=== PATIENT | female | born 1970 | race Caucasian/White ===

== ENCOUNTER 2021-02-09 16:24 | Emergency (ER) | payer OTHER, SELFPAY ==
[2021-02-09 16:25] VITALS: BP 125/72; PULSE 80; RESP 16; TEMP 35.6; O2SAT 97; BMI 41.0
--- NOTE | 2021-02-09 16:42 | US_ITS ---
STUDY: VENOUS DOPPLER ULTRASOUND - RIGHT LOWER EXTREMITY REASON FOR EXAM: Female, 50 years old. SWELLING RT LOWER LEG TECHNIQUE: Ultrasound evaluation of the deep vein system to include alamo-scale imaging and compression was performed. Alamo-scale imaging and Doppler sonographic evaluation, including duplex spectral analysis and qualitative color flow sonography, was performed. COMPARISON: 05/26/2017 FINDINGS: Common Femoral Vein: Normal compression, spontaneity and augmentation. Normal color Doppler. Common Femoral Vein/Greater Saphenous Junction: Normal compression, spontaneity and augmentation. Normal color Doppler. Deep Femoral Vein: Normal compression, spontaneity and augmentation. Normal color Doppler. Femoral Proximal: Normal compression, spontaneity and augmentation. Normal color Doppler. Femoral Middle: Normal compression, spontaneity and augmentation. Normal color Doppler. Femoral Distal: Normal compression, spontaneity and augmentation. Normal color Doppler. Popliteal Vein: Normal compression, spontaneity and augmentation. Normal color Doppler. Posterior Tibial Vein: Normal compression, spontaneity and augmentation. Normal color Doppler. Peroneal Vein: Normal compression, spontaneity and augmentation. Normal color Doppler. US/Venous Duplex Imag/Limited/Uni IMPRESSION: Normal venous Doppler ultrasound of the lower extremity. Electronically Signed: Larry Stephenson MD at 17:40 EDT Tel , Service support ,
--- NOTE | 2021-02-09 18:24 | EX.ED.DYSGE1 ---
HPI History of Present Illness Chief Complaint: Lower Extremity Injury Narrative Narrative: Patient presenting with intermittent right leg pain and swelling. She states it starts in the inguinal region and it hurts in her calf as well. No history of DVT/PE. She seen by her primary care provider today who sent her to the emergency room for DVT study. Patient denies any chest pain or palpitations. Patient feels otherwise well. She denies any trauma. [facility] Medical History Anxiety and depression Atrial flutter Cervical radiculopathy Degenerative disc disease Home Medications Zoloft 50 mg PO DAILY 07/12/14 [History Last Taken 07/11/14] aspirin 81 mg PO DAILY 09/17/16 [History Last Taken Unknown] atenolol 50 mg PO DAILY 09/17/16 [History Last Taken Unknown] gabapentin 300 mg PO QHS 02/09/21 [History Last Taken Unknown] Allergy/AdvReac Type Severity Reaction Status Date / Time codeine Allergy Rash Verified 02/09/21 16:27 Social History Smoking Status: Current every day smoker tobacco type: cigarettes ROS ROS ED Constitutional Constitutional ED: Denies chills, fever(s) or sweats Eyes Eyes: Denies blurry vision or change in vision ENT ENT ED: Denies ear pain, rhinorrhea or sore throat Cardiovascular Cardiovascular: Denies chest pain, palpitations or racing heartbeat Respiratory/Chest Respiratory/Chest: Denies cough, dyspnea or sputum Gastrointestinal Gastrointestinal: Denies abdominal pain, constipation, diarrhea or vomiting Genitourinary Genitourinary ED: Denies dysuria, hematuria or urinary frequency Musculoskeletal Musculoskeletal: Reports other Details: Right leg pain and swelling ; Denies arthralgias, myalgias or neck pain Integumentary Denies abscess, Abrasions or rash Neurologic Neurologic: Denies headache(s), paresthesias or weakness Psychiatric Psychiatric: Denies anxiety, depression, suicidal ideation or suicidal thoughts Endocrine Endocrinology: Denies polydipsia or polyuria EXAM Physical Exam Const Vital Signs: 02/09/21 16:25 Temperature 96.1 F L Temperature Source Temporal Pulse Rate 80 Respiratory Rate 16 Blood Pressure 125/72 H Blood Pressure Mean 89 Pulse Ox 97 Oxygen Delivery Method Room Air Positive well nourished General Appearance ED: NAD HEENT trauma and tenderness Eyes PERRL and EOMs intact bilaterally Resp normal respiratory effort and clear to auscultation bilaterally Cardio regular rate and regular rhythm Extremity Extremity Narrative: No significant edema of the right leg on exam. Minimal tenderness to palpation over the right calf and the right inguinal area. Sensation is intact. Motor is 5/5 strength. Neuro Sensorium / Orientation: alert Psych mental status grossly normal Mood & Affect: Negative for anxious Skin no rashes or lesions noted and no wounds MDM MDM MDM Narrative Medical decision making narrative: Patient presents with right leg pain. I do not appreciate any rashes, bruising, cords palpated. There is no significant edema. I did do a DVT study which was negative. Patient counseled on findings. Should be discharged home in stable condition. Impression: 1. Right leg pain Radiography Diagnostic Testing: Radiology Impression Venous Duplex 02/09/21 16:42 IMPRESSION: Normal venous Doppler ultrasound of the lower extremity. Electronically Signed: Larry Stephenson MD at 17:40 EDT Tel , Service support , Discharge Plan Triage Chief Complaint: Lower Extremity Injury ED Provider: Jaswant Lees Dx/Rx/DC Orders Instructions: ED Leg Spasm Prescriptions: No Action Zoloft tablet 50 mg PO DAILY RF: 0 aspirin 81 MG tablet,delayed release (DR/EC) 81 mg PO DAILY RF: 0 atenolol 50 MG tablet 50 mg PO DAILY RF: 0 gabapentin 300 mg Capsule 300 mg PO QHS RF: 0 Primary Care Provider: Lalitha Cheney Referrals: Lalitha Cheney MD [Primary Care Provider] - Disposition Disposition: Home, self care
== END 2021-02-09 19:33 | disposition home or self-care (01) ==
PROVIDERS: Emergency Provider Student in an Organized Health Care Education/Training Program; PCP Internal Medicine
DX: M79.604 Pain in right leg (principal); M79.89 Other specified soft tissue disorders; F32.9 Major depressive disorder, single episode, unspecified; F41.9 Anxiety disorder, unspecified; I48.92 Unspecified atrial flutter; M54.12 Radiculopathy, cervical region; Z79.82 Long term (current) use of aspirin; Z79.899 Other long term (current) drug therapy; F17.210 Nicotine dependence, cigarettes, uncomplicated
CPT/HCPCS: 93971; 99282